=== PATIENT | female | born 1975 | race Caucasian/White ===

== ENCOUNTER → 2016-10-23 | Outpatient (CLI) | payer BC ==
--- NOTE | 2016-10-23 13:29 | DI ---
History: Contusion right foot Comparison: None Findings: No fracture No malalignment 2 destructive changes No significant degenerative changes No soft tissue foreign bodies Impression: Unremarkable plain film study of the foot
== END ==
LOC: MOB RAD 09:07
PROVIDERS: ATTEND Physician Assistant
DX: M79.671 Pain in right foot (principal); S90.31XA Contusion of right foot, initial encounter; W20.8XXA Other cause of strike by thrown, projected or falling object, initial encounter; Y93.E9 Activity, other interior property and clothing maintenance; Y92.009 Unspecified place in unspecified non-institutional (private) residence as the place of occurrence of the external cause
CPT/HCPCS: 73630